=== PATIENT | male | born 1980 | race Caucasian/White ===

== ENCOUNTER 2018-07-16 02:15 | Emergency (ER) | payer OTHER ==
[~2018-07-16] VITALS: Ht 170.2 cm; Wt 68.9 kg
[2018-07-16 02:32] VITALS: BP 110/64; PULSE 62; RESP 18; Ht 170.2 cm; Wt 68.9 kg
--- NOTE | 2018-07-16 02:53 | ERD ---
ER Documentation Chief Complaint Chief Complaint Rash to left upper arm. +redness. on bactrim for UTI HPI This is a 37-year-old male who presents emergency department with complaints of left upper arm rash and redness. Stated started today and he was very itchy. Stated that he is on Bactrim for his UTI. Denies headache, head injury, loss of consciousness, dizziness, neck pain, neck stiffness, throat pain, difficulty swallowing, difficulty breathing lying flat, shoulder pain, chest pain, back pain, abdominal pain, nausea, vomiting, constipation, diarrhea, urinary symptoms, loss of bowel and bladder control, trauma, injury, falls, difficulty walking due to pain, numbness or tingling sensation, calf pain, recent travel, recent major surgery in the last 3 weeks, calf pain, recent long travel, recent exposure to any illness, recent antibiotic use in the last 3 months, fever, chills, seizures. Past medical history: Surgical history: Social: Denies smoking, use of alcoholic beverages, use of illegal drugs. ROS All systems reviewed and are negative except as per history of present illness. Medications Home Meds Active Scripts Ibuprofen* (Motrin*) 600 Mg Tab, 600 MG PO Q6H PRN for PAIN AND OR ELEVATED TEMP, #30 TAB Prov:PASILABAN,KLAR F 07/16/18 Diphenhydramine Hcl (Benadryl) 25 Mg Cap, 25 MG PO Q8 PRN for ITCHING, #20 CAP Prov:PASILABAN,KLAR F 07/16/18 Prednisone* (Prednisone*) 20 Mg Tab, 40 MG PO DAILY for 5 Days, TAB Prov:PASILABAN,KLAR F 07/16/18 Hydrocortisone* Topical (Hydrocortisone* Topical) 2.5%-28.3 Gm Cream..g., 1 APPLIC TOP BID for 5 Days, #1 TUB Prov:PASILABAN,KLAR F 07/16/18 Allergies Allergies: Coded Allergies: hydromorphone (Verified Allergy, Unknown, 07/16/18) PMhx/Soc History of Surgery: Yes (URINARY STENT PLACEMENT, LITHOTRIPSY X2) Anesthesia Reaction: No Hx Neurological Disorder: No Hx Respiratory Disorders: No Hx Cardiac Disorders: No Hx Psychiatric Problems: No Hx Miscellaneous Medical Probl: No Hx Alcohol Use: No Hx Substance Use: Yes (MARIJUANA - 12 YEARS AGO) Hx Tobacco Use: No Physical Exam Vitals Vital Signs Date Temp Pulse Resp B/P (MAP) Pulse Ox O2 O2 Flow FiO2 Time Delivery Rate 07/16/18 97.8 62 18 110/64 99 02:32 (79) Physical Exam Const: No acute distress Head: Atraumatic Eyes: Normal Conjunctiva ENT: Normal External Ears, Nose and Mouth. Neck: Full range of motion. No meningismus. Resp: Clear to auscultation bilaterally Cardio: Regular rate and rhythm, no murmurs Abd: Soft, non tender, non distended. Normal bowel sounds Skin: No petechiae or rashes. Left upper arm has a dry and scaly rash, with urticarial rash. No vesicular lesions. Back: No midline or flank tenderness Ext: No cyanosis, or edema Neur: Awake and alert. No neurological deficits. Psych: Normal Mood and Affect Procedures/MDM Diagnostic tests: Clinical exam. Treatment: Not applicable. Re-evaluation: Not applicable. Differential diagnosis I have low suspicion for Harris-Martin syndrome, anaphylactic shock, chickenpox, scabies, sepsis, deep space infection. Final diagnosis: Rash. Dermatitis. Prescription: Prednisone. Hydrocortisone cream. Benadryl. Motrin. Follow-up with PCP in the next 24-48 hours. Come back here in the emergency department for any new symptoms or any worsening symptoms. All questions and concerns were answered. Patient and family members verbalized understanding and agreed with plan of care. Hemodynamically stable on discharge. Departure Diagnosis: Primary Impression: Rash and other nonspecific skin eruption Additional Impressions: Rash Dermatitis Condition: Stable Additional Instructions: Follow-up with PCP in the next 24-48 hours. Come back here in the emergency department for any new symptoms or any worsening symptoms. GISELA SCHNEIDER Jul 16, 2018 02:53
[2018-07-16] MEDS ORDERED: PRED20TA PO (02:54)
[2018-07-16] MEDS ORDERED: DIPH25CA6 PO (02:54)
[2018-07-16] MEDS ORDERED: HC30CR25 TOP (02:54)
[2018-07-16] MEDS ORDERED: IBUP-1542 PO (02:55)
== END 2018-07-16 03:13 | disposition home or self-care (01) ==
LOC: FTE 02:15
DX: L30.9 Dermatitis, unspecified (principal)
CPT/HCPCS: 99283